=== PATIENT | female | born 1970 | race Caucasian/White ===

== ENCOUNTER 2024-04-17 15:59 | Emergency (ER) | payer OTHER ==
[2024-04-17] MEDS: Ondansetron 4 MG/2 ML SDV IVPUSH ONE (16:45)
[2024-04-17] MEDS: diphenhydrAMINE 50 MG/ML SDV IVPUSH ONE (16:50)
[2024-04-17] MEDS: Ketorolac 30 MG/ML SDV IVPUSH ONE (16:53)
[2024-04-17] MEDS ORDERED: Acetaminophen/HYDROcodone 325-5 MG Tab ONE (18:16)
[2024-04-17] MEDS ORDERED: Ondansetron 4 MG Tab.DIS ONE (18:16)
[2024-04-17] MEDS: Ondansetron 4 MG Tab.DIS PO ONE (18:20)
[2024-04-17] MEDS: Acetaminophen/HYDROcodone 325-5 MG Tab PO ONE (18:20)
== END 2024-04-17 18:25 ==
LOC: EDSEX → LB.ED 15:59
DX: G43.909 Migraine, unspecified, not intractable, without status migrainosus (principal); Z90.710 Acquired absence of both cervix and uterus
CPT/HCPCS: 70450; 96374; 96375; 99284; A9270; J1200; J1885; J2405; Q0162; 99285